=== PATIENT | male | born 1995 | race Caucasian/White ===

== ENCOUNTER 2017-05-28 17:22 | Emergency (ER) | payer BC ==
[2017-05-28] MEDS ORDERED: LIDOCAINE 1% INJ-PF (10 MG/ML) 30 ML SDV INFIL ONE (18:31)
[2017-05-28] MEDS ORDERED: DIPH/PERTUSS(ACELL)/TETANUS VAC/PF 0.5 ML SYR (>=10YO) IM ONE (19:24)
--- NOTE | 2017-05-28 20:04 | ER Document Report ---
ED General - General Chief Complaint: Laceration Stated Complaint: RIGHT HAND INJURY Time Seen by Provider: 05/28/17 18:12 Mode of Arrival: Ambulatory Information source: Patient, Relative Notes: Patient is a 21-year-old male brought in by his mother complaining of laceration to the dorsum of the right hand. They are working on the arm patient tripped fell backwards and believes he caught the top of the right hand on a shovel and cut the area with a dirty dull edge. No other injuries were reported. Patient states he attempted to put some butterflies on it hopefully would stop but he could not get the bleeding to. This occurred about 2 PM this afternoon and since it would not stop patients had come to ER. TRAVEL OUTSIDE OF THE [place] IN LAST 30 DAYS: No - HPI Onset: Other - 4-5 hours. Onset/Duration: Sudden Quality of pain: Sharp, Throbbing Pain Level: 2 Associated symptoms: Other - Bleeding Exacerbated by: Movement Similar symptoms previously: No Recently seen / treated by doctor: No - Related Data Allergies/Adverse Reactions: No Known Allergies Allergy (Unverified 05/28/17 17:41) Past Medical History - General Information source: Parent - Social History Smoking Status: Never Smoker Chew tobacco use (# tins/day): No Smoking Education Provided: No Frequency of alcohol use: None Drug Abuse: None Family History: Reviewed & Not Pertinent Patient has suicidal ideation: No Patient has homicidal ideation: No - Past Medical History Cardiac Medical History: Reports: None Pulmonary Medical History: Reports: None EENT Medical History: Reports: None Neurological Medical History: Reports: None Endocrine Medical History: Reports: None Renal/ Medical History: Reports: None. Denies: Hx Peritoneal Dialysis Malignancy Medical History: Reports None GI Medical History: Reports: None Musculoskeltal Medical History: Reports None Psychiatric Medical History: Reports: None, Other - ADHD Traumatic Medical History: Reports: None Infectious Medical History: Reports: None Surgical Hx: Negative - Immunizations Hx Diphtheria, Pertussis, Tetanus Vaccination: No Review of Systems - Review of Systems Constitutional: No symptoms reported EENT: No symptoms reported Cardiovascular: No symptoms reported Respiratory: No symptoms reported Gastrointestinal: No symptoms reported Genitourinary: No symptoms reported Male Genitourinary: No symptoms reported Musculoskeletal: No symptoms reported Skin: Other - Laceration dorsum right hand Hematologic/Lymphatic: No symptoms reported Neurological/Psychological: No symptoms reported -: Yes All other systems reviewed and negative Physical Exam - Notes Notes: AA&O x4. No apparent distress. - General General appearance: Appears well - HEENT Head: Normocephalic, Atraumatic Eyes: Normal Conjunctiva: Normal - Respiratory Respiratory status: No respiratory distress Chest status: Nontender Breath sounds: Normal. No: Rhonchi, Stridor, Wheezing Chest palpation: Normal - Cardiovascular Rhythm: Regular Heart sounds: Normal auscultation Murmur: No - Extremities General upper extremity: Tender, Normal ROM, Normal strength, Other Hand: Tender, No evidence of FB, Other - Examination patient's right hand shows that there is a 3 cm laceration on the top of the right hand runs from thumb side to little finger side. It is linear nature and slight flap orientation. Patient has moderate amount of bleeding bright red blood. There appears also to be a small very small arterial pumper. Visualization under bloodless field after applying tourniquet to the forearm shows that there is no tendon damage that can be seen with the naked eye. 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 He has good cap refill in nailbeds of the right fingernails.. No: Tendon deficit - Neurological Cognition: Normal Orientation: AAOx4 [place] Coma Scale Eye Opening: Spontaneous [place] Coma Scale Verbal: Oriented [place] Coma Scale Motor: Obeys Commands Yoav Coma Scale Total: 15 Speech: Normal Additional motor exam normals: Equal agronomy technician - Skin Skin Moisture: Moist Skin Color: Normal, [place], Other - See description in hand heading. Course - Transfer of Care Notes: 05/28/17 20:08 As stated patient's physical exam shows 0-1 be the laceration on the dorsum of the right hand. He has full flexion-extension of those digits on the right hand as well as good cap refill in nailbeds of the fingers. Patient also states he is in need of his tetanus shot tonight. Procedures - Laceration/Wound Repair Right Dorsal Hand Time completed: 20:09 Wound length (cm): 3 Wound's Depth, Shape: Linear, Flap Laceration pre-procedure: Sterile PPE donned Anesthetic type: 1% Lidocaine Volume Anesthetic (mLs): 3 Wound explored: Clean, No foreign body removed Irrigated w/ Saline (mLs): 1,000 Wound Debrided: Minimal Wound Repaired With: Sutures Suture Size/Type: 4:0, Prolene Number of Sutures: 5 Post-procedure wound care: Sterile dressing applied Post-procedure NV exam normal: Yes Complications: No Hands back picture: 1 - 3 cm linear laceration dorsum right hand Discharge - Discharge Condition: Stable Disposition: HOME, SELF-CARE Instructions: Antibiotic Ointment Protection ([facility]), Laceration Care ([facility]), Soap Cleansing ([facility]), Tetanus Immunization Given ([facility]) Additional Instructions: Laceration Care Your laceration has been sutured to keep the skin edges aligned during healing. The time of suture removal depends on the nature and location of your cut. Please follow the care instructions the doctor has outlined for you and return for further care, according to the schedule you've been given. Keep the wound and dressing clean. Unless you were told otherwise, you may shower daily, blotting the wound dry with a clean, unused towel. At other times, If the dressing gets wet or blood soaked, remove it and blot the wound dry, then reapply a new dressing. Unless you were instructed otherwise, dressings should be changed at least daily. If any signs of infection occur (swelling, redness, increasing tenderness, red streaks, tender lumps in the armpit or groin above the laceration, or fever) , see the doctor immediately. Home rest. Medications prescribed. As we discussed keep the area as clean and dry as possible for the next 48 hours. As we also discussed the matter how many sutures we put in if you are overly abusive to that area all the sutures will come out so be extra careful. He may use an antibiotic cream on the site if you would like it is not necessary. Take all the oral antibiotics as we discussed. Should you have any concerns or problems or bleed is not healing appropriately and return to ER for a reevaluation. Other than that return to ER in 8-10 days for suture removal. Again come sooner if you have any concerns or problems. Prescriptions: Clindamycin HCl 300 mg PO QID 7 Days #28 capsule Referrals: DIPAK ALFARO MD [Primary Care Provider] - Follow up as needed
== END 2017-05-28 20:26 | disposition home or self-care (01) ==
LOC: ER 17:22
PROC: 0HQFXZZ Repair Right Hand Skin, External Approach (ICD-10-PCS; principal; 2017-05-28)
DX: S61.411A Laceration without foreign body of right hand, initial encounter (principal); M79.641 Pain in right hand; W19.XXXA Unspecified fall, initial encounter
CPT/HCPCS: 90471; 90715; 99282

== ENCOUNTER → 2018-06-09 | Outpatient (CLI) | payer BC | LOC: OD 15:50 | PROVIDERS: ATTEND Orthopaedic Surgery Hand Surgery | DX: M84.334 Stress fracture, left radius (principal) | CPT/HCPCS: 36415; 82306 ==

== ENCOUNTER 2019-09-29 21:56 | Emergency (ER) | payer OTHER, BC ==
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
[2019-09-29] MEDS ORDERED: PROMETHAZINE HCL 25 MG TABLET PO ONE (23:49)
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
[2019-09-30 01:57] VITALS: BP 136/84
== END 2019-09-30 01:57 | disposition home or self-care (01) ==
LOC: ER 21:56
DX: M54.2 Cervicalgia (principal); R07.89 Other chest pain; M25.521 Pain in right elbow; M25.532 Pain in left wrist; M25.531 Pain in right wrist; M25.562 Pain in left knee; M79.10 Myalgia, unspecified site; V43.52XA Car driver injured in collision with other type car in traffic accident, initial encounter
CPT/HCPCS: 71046; 72110; 72125; 99284

== ENCOUNTER 2019-11-07 13:31 | Emergency (ER) | payer BC, OTHER ==
[2019-11-07 13:38] VITALS: BP 138/81
[2019-11-07 14:16] LABS: A TYPE INFLUENZA AG NEGATIVE (NEGATIVE); B INFLUENZA AG NEGATIVE (NEGATIVE)
--- NOTE | 2019-11-07 14:51 | ER Document Report ---
HPI - HPI Time Seen by Provider: 11/07/19 13:40 Pain Level: 3 Notes: Otherwise healthy 24-year-old male presenting to the emergency department chief complaint of low-grade fever, nausea, vomiting, sore throat and intermittent dizziness. He states symptoms started approximately 3 to 4 days prior to arrival. Denies any shortness of breath. He reports he is concerned he may have coronavirus. He has not had any recent travel, no known exposure to any patients with coronavirus or who are suspected for coronavirus. - CONSTITUTIONAL Constitutional: DENIES: Fever, Chills - EENT EENT: REPORTS: Sore Throat - RESPIRATORY Respiratory: REPORTS: Coughing Past Medical History - General Information source: Patient - Social History Smoking Status: Never Smoker Frequency of alcohol use: None Drug Abuse: None Family History: Reviewed & Not Pertinent Patient has suicidal ideation: No Patient has homicidal ideation: No Renal/ Medical History: Denies: Hx Peritoneal Dialysis Psychiatric Medical History: Reports: Hx Anxiety, Hx Attention Deficit Hyperactivity Disorder Past Surgical History: Reports: Hx Orthopedic Surgery - Left wrist - Immunizations Immunizations up to date: Yes Hx Diphtheria, Pertussis, Tetanus Vaccination: Yes Vertical Provider Document - CONSTITUTIONAL Notes: PHYSICAL EXAMINATION: GENERAL: Well-appearing, well-nourished and in no acute distress. HEAD: Atraumatic, normocephalic. EYES: Pupils equal round and reactive to light, extraocular movements intact, sclera anicteric, conjunctiva are normal. ENT: Nares patent, oropharynx clear without exudates. Moist mucous membranes. NECK: Normal range of motion, supple without lymphadenopathy LUNGS: Breath sounds clear to auscultation bilaterally and equal. No wheezes rales or rhonchi. HEART: Regular rate and rhythm without murmurs ABDOMEN: Soft, nontender, nondistended abdomen. No guarding, no rebound. No masses appreciated. Musculoskeletal: Normal range of motion, no pitting or edema. No cyanosis. NEUROLOGICAL: Cranial nerves grossly intact. Normal speech, normal gait. Normal sensory, motor exams PSYCH: Normal mood, normal affect. SKIN: Warm, Dry, normal turgor, no rashes or lesions noted. - INFECTION CONTROL TRAVEL OUTSIDE OF THE [place] IN LAST 30 DAYS: No Course - Re-evaluation Re-evalutation: Laboratory 11/07/19 13:50 Influenza A (Rapid) NEGATIVE Influenza B (Rapid) NEGATIVE Patient appears well, nontoxic, influenza was negative. Patient's vital signs stable. Patient will be discharged home at this time. - Vital Signs Vital signs: Temp Pulse Resp BP Pulse Ox 98.3 F 80 16 138/81 H 96 11/07/19 13:36 11/07/19 13:36 11/07/19 13:36 11/07/19 13:36 11/07/19 13:36 Discharge - Discharge Clinical Impression: Nausea URI (upper respiratory infection) Qualifiers: URI type: unspecified viral URI Qualified Code(s): J06.9 - Acute upper respiratory infection, unspecified Condition: Stable Disposition: HOME-SNF (ED ONLY) Instructions: Upper Respiratory Illness ([facility]) Additional Instructions: Your flu testing today was negative. Please push fluids. Take Tylenol or ibuprofen for any symptoms. Referrals: SUSHANT GALDAMEZ PA-C [NO LOCAL MD] - Follow up as needed
== END 2019-11-07 15:06 ==
LOC: ER 13:31
DX: J06.9 Acute upper respiratory infection, unspecified (principal); J02.9 Acute pharyngitis, unspecified; R11.2 Nausea with vomiting, unspecified; R50.9 Fever, unspecified; R42 Dizziness and giddiness
CPT/HCPCS: 87804; 99283